=== PATIENT | female | born 1995 | race African-American/Black ===

== ENCOUNTER 2016-09-13 14:03 | Emergency (ER) | payer OTHER ==
[2016-09-13 13:57] LABS: URINE SOURCE CLEAN CATCH
[~2016-09-13 14:03] MED LIST: FAMOTIDINE PO; MACROBID100 MG PO; NO MEDICATIONS; ZOFRAN PO
[2016-09-13 14:04] LABS: URINE APPEARANCE CLEAR; URINE BILIRUBIN NEG (NEG); URINE BLOOD NEG (NEG); URINE COLOR YELLOW; URINE GLUCOSE NEG (NORM); URINE KETONE NEG (NEG); URINE LEUKOCYTE ESTERASE 1+ (NEG); URINE NITRATE POS (NEG); URINE PH 7.5 (5-8); URINE PROTEIN NEG (NEG); URINE UROBILINOGEN 0.2 MG/DL (NORM)
[2016-09-13 14:06] LABS: MICRO INDICATED? YES
[2016-09-13 14:11] LABS: CULTURE INDICATED? YES; URINE AMORPHOUS SEDIMENT AMORP PHOSPHATES; URINE BACTERIA 1+ (NEG); URINE MUCUS PRESENT; URINE RBC NEG /[HPF] (0-2); URINE SQUAMOUS EPITHELIAL CELL OCCAS /[HPF]
== END 2016-09-13 14:25 | disposition home or self-care (01) ==
LOC: SED 14:03
PROVIDERS: Nurse Practitioner
DX: O23.41 Unspecified infection of urinary tract in pregnancy, first trimester (principal); O99.331 Smoking (tobacco) complicating pregnancy, first trimester
CPT/HCPCS: 81003; 84703; 87086; 87088; 87186; 99284